=== PATIENT | male | born 1995 | race Two or more races ===

== ENCOUNTER 2024-09-21 23:28 | Emergency (ER) | payer SELFPAY ==
[2024-09-21 23:33] VITALS: BP 111/69; PULSE 107; RESP 20; TEMP 36.9; O2SAT 95
[2024-09-21 23:38] VITALS: BMI 26.6
[2024-09-21 23:41] VITALS: BP 154/79; PULSE 107; RESP 17; TEMP 36.7; O2SAT 96
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
--- NOTE | 2024-09-21 23:52 | XR_ITS ---
EXAMINATION: Ankle, left 3 views . Technique: Ankle AP, oblique, lateral 3 views Date and time of exam: September 21, 2024 1157 hours INDICATIONS: Ankle pain beginning 10 days ago FINDINGS: Lateral malleolar soft tissue swelling No fracture or dislocation No opaque foreign body IMPRESSION: No fracture or dislocation Mild osteoarthritis tibiotalar joint
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
[2024-09-22 01:34] VITALS: BP 127/65; PULSE 78; RESP 18; TEMP 36.7; O2SAT 99
== END 2024-09-22 01:36 | disposition home or self-care (01) ==
PROVIDERS: Emergency Provider Emergency Medicine
DX: Z02.89 Encounter for other administrative examinations (principal); V43.52XA Car driver injured in collision with other type car in traffic accident, initial encounter; M25.572 Pain in left ankle and joints of left foot; S30.810A Abrasion of lower back and pelvis, initial encounter; R51.9 Headache, unspecified
CPT/HCPCS: 70450; 73610; 93005; 99284